=== PATIENT | male | born 1985 | race Caucasian/White ===

== ENCOUNTER 2018-10-01 10:29 | Emergency (ER) | payer OTHER ==
[2018-10-01 10:45] VITALS: BP 137/97; TEMP 99.1; BMI 19.2
--- NOTE | 2018-10-01 11:15 | DI ---
EXAM: CHEST FRONTAL AND LATERAL VIEWS HISTORY: Cough. COMPARISON: None FINDINGS: Heart size and mediastinal contour within normal limits. No acute infiltrates. Giulia l vascularity with no pleural fluid or pneumothorax. The bony thorax has no acute finding. IMPRESSION: No acute process.
[2018-10-01] MEDS ORDERED: DECADRON 4 MG/ML SDV IM STA (11:50)
[2018-10-01] MEDS ORDERED: DUONEB NEB STA (11:50)
--- NOTE | 2018-10-01 12:18 | ED.PDOC ---
General ED Provider: Dr. JULIANNE PARK Chief Complaint: Respiratory Complaint Stated Complaint: flu like symp Time Seen by Physician: 10:31 Mode of Arrival: Walk-In Information Source: Patient Exam Limitations: No limitations Nursing and Triage Documentation Reviewed and Agree: Yes Does patient meet sepsis criteria?: Yes If yes, has appropriate treatment been initiated?: No System Inflammatory Response Syndrome: Not Applicable Sepsis Protocol: For patient's 13 years and over: Temp is 96.8 and below OR 101 and greater Pulse >90 BPM Resp >20/minute Acutely Altered Mental Status Are patient's symptoms suggestive of a new infection, such as: -Pneumonia -Skin, Soft Tissue -Endocarditis -UTI -Bone, Joint Infection -Implantable Device -Acute Abdominal Infection -Wound Infection -Meningitis -Blood Stream Catheter Infection -Unknown EENT Complaint Exam - Throat Complaint/Exam Symptoms Are: Still present Timimg: Intermittent Initial Severity: Moderate Current Severity: Moderate Aggravating: Reports: None Alleviating: Reports: None Associated Signs and Symptoms: Reports: Chills, Cough, Nasal congestion Uvula Midline: Yes Colleen-tonsillar Fluctuence: No Scarlatinaform Rash Present: No Lesions: Absent: Lip, Gums, Tongue, Buccal Mucosa Exanthem: Absent: Lip, Gums, Tongue, Buccal Mucosa, Pharynx Vesicles: Absent: Lip, Gums, Tongue, Buccal Mucosa, Pharynx Stridor Present: No Sinus Tenderness Present: No Tonsillar Hypertrophy Present: No Tonsillar Exudate Present: No Colleen-tonsillar Swelling Present: No Adenopathy Present: No Splenomegaly Present: No Differential Diagnoses: Influenza, Pharyngitis, URI Review of Systems - Review Of Systems Constitutional: Reports: Chills, Malaise, Loss of appetite Eyes: Reports: No symptoms Ears, Nose, Mouth, Throat: Reports: Throat pain Respiratory: Reports: Cough Cardiac: Reports: No symptoms GI: Reports: No symptoms : Reports: No symptoms Musculoskeletal: Reports: No symptoms Skin: Reports: No symptoms Neurological: Reports: No symptoms Endocrine: Reports: No symptoms Hematologic/Lymphatic: Reports: No symptoms All Other Systems: Reviewed and Negative Past Medical History - Past Medical History Previously Healthy: Yes Endocrine: Reports: None Cardiovascular: Reports: None Respiratory: Reports: None Hematological: Reports: None Gastrointestinal: Reports: None Genitourinary: Reports: None Neuro/Psych: Reports: None Musculoskeletal: Reports: None Cancer: Reports: None - Surgical History General Surgical History: Reports: None - Family History Family History: Reports: None - Social History Smoking Status: Never smoker Hx Substance Use: Yes (MARIJUANA) Alcohol Screening: None Physical Exam - Physical Exam Appearance: Well-appearing, No pain distress, Well-nourished Eyes: JHOANA, EOMI, Conjunctiva clear ENT: Erythema Respiratory: Rhonchi Cardiovascular: RRR, Pulses normal, No rub, No murmur GI/: Soft, Nontender, No masses, Bowel sounds normal, No Organomegaly Musculoskeletal: Normal strength, ROM intact, No edema, No calf tenderness Skin: Warm, Dry, Normal color Neurological: Sensation intact, Motor intact, Reflexes intact, Cranial nerves intact, Alert, Oriented Psychiatric: Affect appropriate, Mood appropriate Critical Care Note - Critical Care Note Total Time (mins): 0 Course - Course Hematology/Chemistry: 10/01/18 10:55 Orders, Labs, Meds: Lab Review 10/01/18 10/01/18 10:54 10:55 WBC 13.09 H RBC 5.20 Hgb 16.0 Hct 45.9 MCV 88.3 MCH 30.8 MCHC 34.9 RDW Coeff of Rosanna 12.2 Plt Count 326 Immature Gran % (Auto) 0.4 Neut % (Auto) 70.9 Lymph % (Auto) 21.2 Tift % (Auto) 6.6 Eos % (Auto) 0.5 Baso % (Auto) 0.4 Immature Gran # (Auto) 0.1 Neut # (Auto) 9.3 H Lymph # (Auto) 2.8 Tift # (Auto) 0.9 Eos # (Auto) 0.1 Baso # (Auto) 0.1 Influ A Molecular Assay Negative by naat Influ B Molecular Assay Negative by naat Orders Category Date Time Status NEBULIZER TREATMENT Stat CARDIO 10/01/18 11:50 Completed CBC W/ AUTO DIFF Stat LAB 10/01/18 10:55 Completed FLU A/B MOLECULAR Stat LAB 10/01/18 10:54 Completed MOLECULAR GROUP A STREP Stat LAB 10/01/18 10:54 Completed RSV Stat LAB 10/01/18 10:54 Received Dexamethasone 4 mg/ml Inj [Decadron 4 mg/ml Sdv] MEDS 10/01/18 11:50 Discontinued 8 mg IM ONCE STA Ipratropium/Albuterol Neb [Duoneb] MEDS 10/01/18 11:50 Discontinued 1 vial NEB ONCE STA CHEST, 2 VIEWS PA & LAT Stat RADS 10/01/18 10:45 Completed Medications Discontinued Medications Generic Name Dose Route Start Last Admin Trade Name Ad PRN Reason Stop Dose Admin Albuterol/Ipratropium 1 vial 10/01/18 11:50 10/01/18 12:07 Duoneb NEB 10/01/18 11:51 1 vial ONCE STA Administration Dexamethasone Sodium Phosphate 8 mg 10/01/18 11:50 10/01/18 12:04 Decadron 4 Mg/Ml Sdv IM 10/01/18 11:51 8 mg ONCE STA Administration Vital Signs: Temp Pulse Resp BP Pulse Ox 10/01/18 10:31 99.1 F 83 20 137/97 H 98 Departure - Departure Time of Disposition: 12:18 Disposition: HOME SELF-CARE Discharge Problem: Pharyngitis Qualifiers: Pharyngitis/tonsillitis etiology: unspecified etiology Qualified Code(s): J02.9 - Acute pharyngitis, unspecified Instructions: Strep Throat (ED) Condition: Good Pt referred to PMD for follow-up: Yes IPMP verified?: No Additional Instructions: Please call your Family Physician as soon as possible to schedule a follow-up appointment. Prescriptions: Azithromycin [Zithromax] 500 mg PO DIRECTED #6 tablet Prednisone 10 mg PO DAILYWM #7 tablet Allergies/Adverse Reactions: Allergies No Known Allergies Allergy (Unverified 10/01/18 10:34) Home Medications: Ambulatory Orders Azithromycin [Zithromax] 500 mg PO DIRECTED #6 tablet 10/01/18 Prednisone 10 mg PO DAILYWM #7 tablet 10/01/18
== END 2018-10-01 12:39 | disposition home or self-care (01) ==
LOC: ED 10:29
DX: J02.9 Acute pharyngitis, unspecified (principal)
CPT/HCPCS: 36415; 85025; 87502; 87651; 87801; 94640; 96372; 99283